=== PATIENT | male | born 1985 | race African-American/Black ===

== ENCOUNTER 2023-05-17 16:37 | Emergency (ER) | payer OTHER, MEDICAID, SELFPAY ==
[2023-05-17 16:42] VITALS: BP 138/94; PULSE 76; RESP 16; TEMP 37; O2SAT 98; BMI 29.1
--- NOTE | 2023-05-17 16:52 | ED_ITS ---
HPI - Skin/Abscess/Foreign Bdy <HUSEYIN Diamond - Last Filed: 05/17/23 17:35> General Chief complaint: Skin/Abscess/Foreign Body Stated complaint: bee sting to rt foot Time Seen by Provider: 05/17/23 16:52 Related Data Previous Rx's Medication Instructions Recorded doxycycline hyclate 100 mg capsule 100 mg PO BID 10 days #20 caps 05/17/23 nystatin 100,000 unit/gram topical 1 applic topical BID 7 days #30 05/17/23 powder grams hydrocodone 5 mg-acetaminophen 325 1 tab PO Q6H PRN pain #5 tabs 05/18/23 mg tablet Allergies Allergy/AdvReac Type Severity Reaction Status Date / Time methylphenidate Allergy Verified 05/17/23 17:14 nitrofurantoin Allergy Rash Verified 05/17/23 17:14 [From Macrobid] Review of Systems <HUSEYIN Diamond - Last Filed: 05/17/23 17:35> Review of Systems ROS Unobtainable: All systems reviewed & are unremarkable except as noted in HPI and below Exam <HUSEYIN Diamond - Last Filed: 05/17/23 17:35> Narrative Exam Narrative: Reviewed vitals signs and nursing notes. General: Pleasant, sitting upright, in no acute distress, well groomed, afebrile MSK: moves all extremities, no weakness, normal tone, ambulatory without deficit Skin: brisk capillary refill, dorsum of right foot is warm, erythematous, there are 2 large blisters over the 2nd toe 1 on the medial aspect in between his 1st and 2nd toes and the other at the base of the 2nd toe which are superficial with clear fluid. They were both drained with a 21 gauge needle and patient tolerated this well, no calf tenderness to palpation, no foreign body Neuro: clear speech and normal cognition, A&O x3, GCS 15, no focal motor or sensation deficits Initial Vital Signs Initial Vital Signs: Vital Signs Temperature 98.6 F 05/17/23 16:42 Pulse Rate 76 05/17/23 16:42 Respiratory Rate 16 05/17/23 16:42 Blood Pressure 138/94 H 05/17/23 16:42 Pulse Oximetry 98 05/17/23 16:42 Oxygen Delivery Method Room Air 05/17/23 16:42 <Barbara Chacon DO - Last Filed: 05/20/23 19:42> Initial Vital Signs Initial Vital Signs: Vital Signs Temperature 98.6 F 05/17/23 16:42 Pulse Rate 76 05/17/23 16:42 Respiratory Rate 16 05/17/23 16:42 Blood Pressure 138/94 H 05/17/23 16:42 Pulse Oximetry 98 05/17/23 16:42 Oxygen Delivery Method Room Air 05/17/23 16:42 Course <HUSEYIN Diamond - Last Filed: 05/17/23 17:35> Orders Ordered: Discontinued Medications Diphtheria/Tetanus/Acell Pertussis (Tet,Diph,Pertuss(Acell),Vac/Pf 0.5 Ml Syringe) 0.5 ml IM .ONCE ONE Stop: 05/17/23 17:20 Last Admin: 05/17/23 17:31 Dose: Not Given Documented By: AYDE Doxycycline Hyclate (Doxycycline Hyclate 100 Mg Tablet) 100 mg PO NOW ONE Stop: 05/17/23 17:20 Last Admin: 05/17/23 17:32 Dose: 100 mg Documented By: YAIR Fluconazole (Fluconazole 100 Mg Tablet) 150 mg PO NOW ONE Stop: 05/17/23 17:24 Last Admin: 05/17/23 17:34 Dose: 150 mg Documented By: YAIR Ibuprofen (Ibuprofen 400 Mg Tablet) 600 mg PO NOW ONE Stop: 05/17/23 17:20 Last Admin: 05/17/23 17:30 Dose: Not Given Documented By: AYDE Ketorolac Tromethamine (Ketorolac 30 Mg/Ml Vial) 15 mg IM NOW ONE Stop: 05/17/23 17:24 Last Admin: 05/17/23 17:32 Dose: 15 mg Documented By: YAIR Prednisone (Prednisone 20 Mg Tablet) 60 mg PO NOW ONE Stop: 05/17/23 16:54 Last Admin: 05/17/23 17:16 Dose: 60 mg Documented By: YAIR Vital Signs Vital signs: Vital Signs - 8 hr 05/17/23 16:42 Temperature 98.6 F Pulse Rate 76 Respiratory Rate 16 Blood Pressure 138/94 H Pulse Oximetry 98 Oxygen Delivery Method Room Air <Barbara Chacon DO - Last Filed: 05/20/23 19:42> Orders Ordered: Discontinued Medications Diphtheria/Tetanus/Acell Pertussis (Tet,Diph,Pertuss(Acell),Vac/Pf 0.5 Ml Syringe) 0.5 ml IM .ONCE ONE Stop: 05/17/23 17:20 Last Admin: 05/17/23 17:31 Dose: Not Given Documented By: AYDE Doxycycline Hyclate (Doxycycline Hyclate 100 Mg Tablet) 100 mg PO NOW ONE Stop: 05/17/23 17:20 Last Admin: 05/17/23 17:32 Dose: 100 mg Documented By: YAIR Fluconazole (Fluconazole 100 Mg Tablet) 150 mg PO NOW ONE Stop: 05/17/23 17:24 Last Admin: 05/17/23 17:34 Dose: 150 mg Documented By: YAIR Ibuprofen (Ibuprofen 400 Mg Tablet) 600 mg PO NOW ONE Stop: 05/17/23 17:20 Last Admin: 05/17/23 17:30 Dose: Not Given Documented By: AYDE Ketorolac Tromethamine (Ketorolac 30 Mg/Ml Vial) 15 mg IM NOW ONE Stop: 05/17/23 17:24 Last Admin: 05/17/23 17:32 Dose: 15 mg Documented By: YAIR Prednisone (Prednisone 20 Mg Tablet) 60 mg PO NOW ONE Stop: 05/17/23 16:54 Last Admin: 05/17/23 17:16 Dose: 60 mg Documented By: YAIR Vital Signs Vital signs: Vital Signs - 8 hr 05/17/23 16:42 Temperature 98.6 F Pulse Rate 76 Respiratory Rate 16 Blood Pressure 138/94 H Pulse Oximetry 98 Oxygen Delivery Method Room Air MDM - Skin/Abscess/Foreign Bdy <Mary Zuluaga [facility] - Last Filed: 05/17/23 17:35> MDM Narrative Medical decision making narrative: Chief Complaint: Bee sting to right foot 2 days ago Multiple etiologies for patient's complaint considered including, but not limited to: Cellulitis, hypersensitivity reaction, edema with blisters, foreign body, fungal infection on top of bacterial infection I have independently reviewed the patient's vital signs and nursing notes as well as prior records if available. Plan: Patient's right foot does not have any foreign body like a stinger left in the toe region, there are 2 blisters on the dorsum of his 2nd toe 1 medially and the other on the base of the dorsum of the toe proximally 2 cm each. They were both drained with a 21 gauge needle superficially and patient tolerated well, clear fluid underneath. The entire dorsum of the foot is edematous erythematous which extends up to the ankle, this is concerning for cellulitis, patient is tender to palpation and his foot is very warm. Recommended updating his tetanus vaccination due to the secondary wounds. Patient states that after this injury he walked for quite a long time and his foot was dependent for most of the day. He has been elevating it today since it is so swollen and painful. He has taken ibuprofen and Tylenol which he states his helped but is not covering his pain. He denies wanting tetanus vaccination update today, he was treated with doxycycline b.i.d. times 10 days, nystatin powder for in between his toes as he has moisture present in between his 4th and 5th toe and 1st and 2nd toe concerning for fungal infection. He has history of toenail fungus and play soccer currently, there is a mild odor, he was given 1 dose of fluconazole and taught how to use nystatin powder in between his toes. He is given strict return precautions for worsening of the swelling in edema or pain proximally or if he develops fever chills to return to the emergency department he states understanding. Social considerations that may affect disposition: none Questions are addressed and there is agreement with the plan and for follow-up. I consulted with the ED attending physician Dr. Chacon as needed for higher level of care considerations and they were available for discussion and recommendations regarding plan of care and diagnostic testing. Patient is appropriate for outpatient management. Discharge Plan Departure Patient Disposition: Home Clinical Impression: Toenail fungus Bee sting reaction Qualifiers: Encounter type: initial encounter Injury intent: accidental or unintentional Qualified Code(s): T63.441A - Toxic effect of venom of bees, accidental (unintentional), initial encounter Cellulitis Qualifiers: Site of cellulitis: extremity Site of cellulitis of extremity: lower extremity Laterality: right Qualified Code(s): L03.115 - Cellulitis of right lower limb Instructions: Cellulitis, Insect Bites and Stings, Edema Activity Restrictions/Additional Instructions: *You have been diagnosed with bee sting to right foot with blisters, a hypersensitivity reaction, edema, and presumably a bacterial skin infection called cellulitis. Please take these antibiotics twice a day for the next 10 days, elevate, take ibuprofen and Tylenol with cool compresses frequently, please allow your foot to breathe in the air and please space your toes out so air can get in between them with a small piece of gauze or paper towel. You can develop a secondary fungal infection. Please use the nystatin powder in between your toes as needed to prevent fungal infection. Please update your tetanus vaccination, take ibuprofen and Tylenol together every 6 hours treat your pain, a pain pill in addition, this should start to get better soon. If you have worsening redness and swelling that extends proximally up your leg, please come back to the emergency department. You can take Benadryl if it is itchy. *What to do: *Please continue to take your regular medications as directed. [x ] New medication prescriptions sent to your pharmacy: [[facility]] [ ] New medication written as a paper prescription [ ] No new medications given *Please call and schedule follow up with your primary care provider in 2-3 days, at least for an update. Let them know you were seen in the Emergency Department for the above problem. We will electronically transmit a record of today's note if your PCP or specialist is in our system. *If you do not have a primary care provider please contact [phone] to establish care with one of the [facility] primary care providers. *Return to the Emergency Department for worsening symptoms, inability to keep liquids down, fever greater than 101F, chills, or other concerning symptom. Prescriptions: New doxycycline hyclate 100 mg capsule 100 mg PO BID 10 Days Qty: 20 0RF nystatin 100,000 unit/gram powder 1 applic topical BID 7 Days Qty: 30 0RF Rx Instructions: Apply in between toes were moisture is present after drying completely hydrocodone-acetaminophen 5-325 mg tablet 1 tab PO Q6H PRN (Reason: pain) Qty: 5 0RF Referrals: Serg Shah MD [Primary Care Provider] - Stand Alone Forms: Patient Portal/API <Barbara Chacon DO - Last Filed: 05/20/23 19:42> [facility] Attestation: I was immediately available in the department for consultation. Documentation has been reviewed.
[2023-05-17] MEDS: predniSONE 20 MG TABLET 60 MG PO (17:16)
[2023-05-17] MEDS: DOXYCYCLINE HYCLATE 100 MG TABLET PO (17:32)
[2023-05-17] MEDS: KETOROLAC 30 MG/ML VIAL 15 MG IM (17:32)
[2023-05-17] MEDS: FLUCONAZOLE 100 MG TABLET 150 MG PO (17:34)
[2023-05-17 17:41] VITALS: BP 125/84; PULSE 60; RESP 16; O2SAT 99
== END 2023-05-17 17:41 | disposition home or self-care (01) ==
PROVIDERS: Emergency Provider Nurse Practitioner Critical Care Medicine; PCP Internal Medicine
DX: T63.441A Toxic effect of venom of bees, accidental (unintentional), initial encounter (principal); L03.115 Cellulitis of right lower limb
CPT/HCPCS: 96372; 99283; J1885